=== PATIENT | female | born 1990 | race Hispanic/Latino ===

== ENCOUNTER 2022-03-24 17:05 | Emergency (ER) | payer MEDICAID ==
[~2022-03-24] VITALS: Ht 154.9 cm; Wt 97.5 kg
[2022-03-24 17:21] LABS: APPEARANCE,URINE CLOUDY (CLEAR); BILIRUBIN,URINE NEGATIVE (NEGATIVE); COLOR,URINE YELLOW (YELLOW); GLUCOSE, URINE (UA) NEGATIVE (NEGATIVE); KETONES,URINE 10 mg/dL (NEGATIVE); LEUKOCYTE ESTERASE ,URINE 500 Leu/uL (NEGATIVE); NITRATE,URINE NEGATIVE (NEGATIVE); OCCULT BLOOD,URINE LARGE (NEGATIVE); PROTEIN,URINE 300 mg/dL (NEGATIVE); UROBILINOGEN,URINE 0.2 mg/dL (0.2-1.0)
[2022-03-24 17:25] LABS: HCG,QUALITATIVE URINE NEGATIVE (NEGATIVE)
[2022-03-24 17:33] LABS: WBC,URINE 26-50 /HPF (0-1)
[2022-03-24 17:34] LABS: BACTERIA,URINE Rare /HPF (None Seen); MUCUS,URINE Rare LPF (None Seen); SQUAMOUS EPITHELIAL CELL,UR Few /HPF (0-2)
[2022-03-24] MEDS ORDERED: CEPH500B PO (18:59)
[2022-03-24] MEDS ORDERED: NAPR500T6 PO (18:59)
[2022-03-24] MEDS ORDERED: PHEN-847 PO (18:59)
[2022-03-24] MEDS ORDERED: CEFTRIAXONE 1G VIAL IM ONE (19:00)
[2022-03-24] MEDS ORDERED: KETOROLAC 30MG VIAL (30MG/ML) IM ONE (19:00)
[2022-03-24] MEDS ORDERED: PHENAZOPYRIDINE HCL 200 MG TABLET PO ONE (19:00)
[2022-03-24 19:21] VITALS: BP 108/61
== END 2022-03-24 19:24 | disposition home or self-care (01) ==
LOC: EDH 17:05
DX: N39.0 Urinary tract infection, site not specified (principal); Z90.49 Acquired absence of other specified parts of digestive tract
CPT/HCPCS: 99284; 87088; 81001; 81025; 96372 ×2; J0696; J1885